=== PATIENT | female | born 1935 | race Caucasian/White ===

== ENCOUNTER 2019-11-06 06:06 | Day surgery (SDC) | payer MEDICARE ==
[2019-11-05 10:45] VITALS: BMI 26.4
[2019-11-06] MEDS ORDERED: Heparin (Artline) 1,000 ML ONE (06:40)
[2019-11-06] MEDS ORDERED: Nitroglycerin 100MG/250ML BOT 250 ML ONE (06:40)
[2019-11-06] MEDS ORDERED: Heparin 10,000 UNITS/1 ML VIAL ONE (06:40)
[2019-11-06] MEDS ORDERED: Verapamil 5 MG/2 ML VIAL ONE (06:40)
[2019-11-06 06:57] LABS: #Basophils 0.1 thou/uL (0.0-0.2); #Eosinphils 0.7 thou/uL (0.0-0.7); #Lymphocytes 3.2 thou/uL (1.20-3.40); #Monocytes 0.8 thou/uL (0.11-0.59); %Basophils 1.5 % (0.0-1.0); %Eosinophils 7.4 % (0.0-10.0); %Lymphocytes 32.4 % (21.0-51.0); %Monocytes 8.2 % (0.0-10.0); %Neutrophils 50.5 % (42.0-75.0); Mean Corpuscular HGB CONC 33.6 g/dL (32.0-36.0); Mean Corpuscular Hemoglobin 33.1 pg (27.0-31.0); Mean Corpuscular Volume 98.4 fL (78.0-98.0); Mean Platelet Volume 7.7 fL (7.4-10.4); Platelet Count 220 thou/uL (130-400); RBC Distribution Width 11.9 % (11.5-14.5); Red Blood Cell (RBC) Count 4.23 mill/uL (4.20-5.40); White Blood Cell (WBC) Count 9.8 thou/uL (4.8-10.8)
[2019-11-06 07:11] LABS: ALT (SGPT) 18 U/L (8-55); AST (SGOT) 24 U/L (5-34); Albumin 4.4 g/dL (3.4-4.8); Alkaline Phosphatase 67 U/L (40-110); Anion Gap 14 mmol/L (10-20); BUN (Urea Nitrogen) 22 mg/dL (9.8-20.1); Bilirubin, Total 0.7 mg/dL (0.2-1.2); Calc. Creatinine Clearance 45 mL/min (70-130); Calcium 9.7 mg/dL (7.8-10.44); Carbon Dioxide 28 mmol/L (23-31); Cardiac Risk 2.1 (Less than 4.5); Chloride 105 mmol/L (98-107); Cholesterol 128 mg/dl (< 200 Desired); Estimated GFR-MDRD 47; Globulin 3.5 g/dL (2.4-3.5); Glucose 101 mg/dL (83-110); HDL Cholesterol 61 mg/dL (>60 Neg Risk); LDL Cholesterol, Calculated 53 mg/dL; Potassium 4.1 mmol/L (3.5-5.1); Protein, Total 7.9 g/dL (6.0-8.3); Sodium 143 mmol/L (136-145); Triglycerides 70 mg/dL (Less than 150)
[2019-11-06] MEDS ORDERED: Midazolam HCl 2 mg/2 ml Vial ONE (07:44)
[2019-11-06] MEDS ORDERED: Fentanyl 100 MCG/2 ML VIAL ONE (07:44)
[2019-11-06] MEDS ORDERED: hydrALAZINE 20 MG/ML VIAL ONE (09:04)
[2019-11-06] MEDS ORDERED: Clopidogrel Bisulfate 300 MG TAB ONE (09:10)
[2019-11-06] MEDS ORDERED: Iopamidol 370 76% 50 ML VIAL FS ONE (11:40)
[2019-11-06] MEDS ORDERED: Iopamidol 370 76% 100 ML VIAL ONE (11:40)
[2019-11-06] MEDS ORDERED: Lidocaine 1% PF 5 ML VIAL ONE (14:56)
--- NOTE | 2019-11-11 10:23 | EKG ---
Test Reason : POST CATH Blood Pressure : / mmHG Vent. Rate : 056 BPM Atrial Rate : 056 BPM P-R Int : 252 ms QRS Dur : 086 ms QT Int : 448 ms P-R-T Axes : 079 070 072 degrees QTc Int : 432 ms Sinus bradycardia with 1st degree A-V block Otherwise normal ECG When compared with ECG of 15-FEB-2015 14:52, No significant change was found Confirmed by WYATT MALDONADO (2) on 11/11/2019 10:23:21 AM Referred By: JENNIFER Confirmed By:WYATT MALDONADO
== END 2019-11-06 13:30 | disposition home or self-care (01) ==
LOC: CCL 06:06
PROVIDERS: ATTEND Internal Medicine Cardiovascular Disease
PROC: 02703ZZ Dilation of Coronary Artery, One Artery, Percutaneous Approach (ICD-10-PCS; principal; 2019-11-06)
PROC: 4A023N7 Measurement of Cardiac Sampling and Pressure, Left Heart, Percutaneous Approach (ICD-10-PCS; 2019-11-06)
PROC: B2111ZZ Fluoroscopy of Multiple Coronary Arteries using Low Osmolar Contrast (ICD-10-PCS; 2019-11-06)
DX: I25.110 Atherosclerotic heart disease of native coronary artery with unstable angina pectoris (principal); I10 Essential (primary) hypertension; E78.5 Hyperlipidemia, unspecified; Z87.891 Personal history of nicotine dependence; Z79.02 Long term (current) use of antithrombotics/antiplatelets; Z79.82 Long term (current) use of aspirin; Z79.899 Other long term (current) drug therapy; Z88.2 Allergy status to sulfonamides; Z95.5 Presence of coronary angioplasty implant and graft
CPT/HCPCS: 80053; 80061; 85025; 85347; 92920; 93005; 93010; 93458; 99152; 99153; C1769; C1874; C1887; J0360; J1644; J2001; J2250; J3010; Q9967